=== PATIENT | female | born 1960 | race Two or more races ===

== ENCOUNTER 2020-04-28 07:35 | Emergency (ER) | payer MEDICAID, OTHER ==
[~2020-04-28] VITALS: Ht 160 cm; Wt 72.6 kg
[2020-04-28 08:02] VITALS: BP 131/88
[2020-04-28] MEDS ORDERED: FLUORESCEIN SOD 1 MG TEST STRIP OP ONE (08:30)
[2020-04-28] MEDS ORDERED: TETRACAINE HCL 0.5% OPTH(EYE) SOLN 4ML EACHEYE ONE (08:30)
== END 2020-04-28 08:59 | disposition home or self-care (01) ==
LOC: ER 07:35 → EDBD 07:35 → ER 08:59
DX: S05.02XA Injury of conjunctiva and corneal abrasion without foreign body, left eye, initial encounter (principal); Z77.098 Contact with and (suspected) exposure to other hazardous, chiefly nonmedicinal, chemicals; X58.XXXA Exposure to other specified factors, initial encounter; Y93.89 Activity, other specified; Y92.89 Other specified places as the place of occurrence of the external cause; Y99.8 Other external cause status

== ENCOUNTER 2020-04-29 10:15 | Emergency (ER) | payer MEDICAID ==
[~2020-04-29] VITALS: Ht 160 cm; Wt 72.6 kg
[2020-04-29 10:25] VITALS: BP 139/78
== END 2020-04-29 11:15 | disposition home or self-care (01) ==
LOC: ER 10:15
DX: H57.12 Ocular pain, left eye (principal); G43.909 Migraine, unspecified, not intractable, without status migrainosus; S05.02XD Injury of conjunctiva and corneal abrasion without foreign body, left eye, subsequent encounter; X58.XXXD Exposure to other specified factors, subsequent encounter